=== PATIENT | female | born 1955 | race Caucasian/White ===

== ENCOUNTER → 2017-01-30 | Outpatient (CLI) | payer BC ==
--- NOTE | 2017-02-09 09:07 | MM ---
Reason for exam: screening (asymptomatic). Last mammogram was performed 1 year and 9 months ago. History: Patient is postmenopausal. Family history of breast cancer in mother at age 53. Physical Findings: A clinical breast exam by your physician is recommended on an annual basis and results should be correlated with mammographic findings. MG 3D Screening Mammo W/Cad Bilateral CC and MLO view(s) were taken. Prior study comparison: April 19, 2015, mammogram, performed at [facility]. March 22, 2014, mammogram, performed at [facility]. The breast tissue is heterogeneously dense. This may lower the sensitivity of mammography. No significant changes when compared with prior studies. ASSESSMENT: Negative, BI-RAD 1 RECOMMENDATION: Routine screening mammogram of both breasts in 1 year.
== END | disposition home or self-care (01) ==
LOC: RADMAMWWP 08:00
PROVIDERS: ATTEND Family Medicine
DX: Z12.31 Encounter for screening mammogram for malignant neoplasm of breast (principal)
CPT/HCPCS: 77063; G0202

== ENCOUNTER → 2017-02-03 | Outpatient (CLI) | payer BC ==
--- NOTE | 2017-02-04 17:14 | WWHP ---
DATE OF SERVICE: 02/03/17 CHIEF COMPLAINT: The patient is here for her routine gynecological exam and mammogram. HISTORY OF PRESENT ILLNESS: This is a 61-year-old G3, P3, with an LMP of approximately 1994. She states her last pelvic exam was about five years ago. Her mammogram was done on 01/30/17. Results are pending. She is without gynecological complaints and denies any postmenopausal bleeding. She has experienced some occasional urinary leakage. She states she occasionally will feel the urge to urinate and if she cannot get to the bathroom right away, she will leak. PAST MEDICAL HISTORY: Cardiac arrhythmia. 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 Elevated cholesterol. Chronic hypertension. Hypothyroidism. Restless leg syndrome. Gastroesophageal reflux disease. Seasonal allergies. Medications: 1. Requip generic 1 mg b.i.d. 2. Levothyroxine 100 mcg daily. 3. Prevacid 20 mg daily. 4. Hydrochlorothiazide 25 mg daily. 5. Lisinopril 5 mg daily. 6. Atorvastatin 80 mg daily. 7. Metoprolol tartrate 50 mg one in the morning and half tablet in the evening. 8. Plavix generic 75 mg daily. 9. Aspirin 325 mg daily. 10. Multivitamin one daily. 11. Claritin 24 hours 10 mg one daily prn. 12. Tylenol two tablets prn. ALLERGIES: No known drug allergies. 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 Stents placed in her arteries in her leg. PAST OB HISTORY: Three vaginal deliveries. 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 She has no history of STDs SOCIAL HISTORY: She quit smoking in 2013 but does use E-cigarettes. She has about six alcoholic drinks per year and denies drug use. She is a since 2009 and is not seeing anybody and is not sexually active at this time. 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 She has eight grandchildren. FAMILY HISTORY: Mother had breast cancer. Father had an SD. An aunt had diabetes. REVIEW OF SYSTEMS: Weight has been stable. She denies respiratory, cardiac or GI problems. : She has had occasional urge incontinence as in the HPI. PHYSICAL EXAM: Blood pressure 138/66. Height 5 feet 8 inches, weight 236 pounds. Temperature 96.7. Pulse 92. This is a well developed, white female who is alert and oriented times three in no acute distress. HEENT: is within normal limits. Neck is supple without mass or thyromegaly. Chest and lungs clear to auscultation. Heart is regular rate and rhythm. Breasts: Without mass or discharge. Axillary exam is negative for adenopathy. Back negative for CVA tenderness. Abdomen is soft and nontender without palpable masses. Pelvic exam, external genitalia reveals mild atrophy without lesions. There is no atrophy without lesions. There is no evidence of prolapse. There is no evidence of cystocele. With cough and Valsalva there is still no significant cystocele and no urinary leakage was demonstrated. There is minimal urethral mobility with cough and Valsalva. The uterus is mid position, nongravid size and nontender. There are no palpable adnexal masses or tenderness. Rectal exam negative for mass or tenderness. Negative for occult blood. Extremities nontender. IMPRESSION: 1. A 61 year old menopausal female with normal gynecological exam. 2. Occasional urge incontinence without any significant physical findings at this time. PLAN: 1. Pap smear was performed. 2. Self breast examination was discussed with the patient. 3. Mammogram was done on 01/30/17 and the results are pending. 4. Osteoporosis prevention was discussed. 5. I have recommended screening colonoscopy since she has never had this done. She will do this through her primary healthcare management. 6. I have recommended bone density screening. She would like to do this next year. 7. She will return in one year. ZINA
== END ==
LOC: WWCWWP 15:23
PROVIDERS: ATTEND Obstetrics & Gynecology
DX: Z01.419 Encounter for gynecological examination (general) (routine) without abnormal findings (principal)

== ENCOUNTER → 2018-04-16 | Outpatient (CLI) | payer BC ==
[2018-04-16 13:20] LABS: ALT 26 U/L (9-52); AST 20 U/L (14-36); Albumin 3.7 g/dL (3.5-5.0); Alkaline Phosphatase 75 U/L (38-126); Anion Gap 3 mmol/L; Blood Urea Nitrogen 17 mg/dL (7-17); Calcium 9.3 mg/dL (8.4-10.2); Carbon Dioxide 31 mmol/L (22-30); Chloride 108 mmol/L (98-107); Cholesterol 129 mg/dL (<200); Glucose 85 mg/dL (74-99); HDL Cholesterol 44 mg/dL (40-60); LDL Cholesterol,Calculated 72 mg/dL (0-99); Potassium 4.9 mmol/L (3.5-5.1); Sodium 142 mmol/L (137-145); Total Bilirubin 0.5 mg/dL (0.2-1.3); Total Protein 6.2 g/dL (6.3-8.2); Triglycerides 66 mg/dL (<150)
== END | disposition home or self-care (01) ==
LOC: LABWHC1 11:29
PROVIDERS: ATTEND Internal Medicine Cardiovascular Disease
DX: I25.10 Atherosclerotic heart disease of native coronary artery without angina pectoris (principal); E78.5 Hyperlipidemia, unspecified
CPT/HCPCS: 36415; 80053; 80061

== ENCOUNTER → 2018-07-06 | Outpatient (CLI) | payer BC ==
[2018-07-06 14:55] LABS: HCT 44.7 % (34.0-46.0); HGB 14.6 gm/dL (11.4-16.0); MCHC 32.7 g/dL (31.0-37.0); MCV 94.7 fL (80.0-100.0); Mean Platelet Volume 6.4; Platelet Count 329 k/uL (150-450); RBC 4.72 m/uL (3.80-5.40); RDW 13.6 % (11.5-15.5); WBC 7.2 k/uL (3.8-10.6)
[2018-07-06 15:17] LABS: Potassium 3.6 mmol/L (3.5-5.1)
== END | disposition home or self-care (01) ==
LOC: LABPAT 14:18
PROVIDERS: ATTEND Internal Medicine Interventional Cardiology
DX: Z01.812 Encounter for preprocedural laboratory examination (principal); I10 Essential (primary) hypertension; E78.1 Pure hyperglyceridemia; I70.213 Atherosclerosis of native arteries of extremities with intermittent claudication, bilateral legs
CPT/HCPCS: 36415; 80051; 82565; 84520; 85027

== ENCOUNTER → 2018-07-23 | Day surgery (SDC) | payer BC ==
[2018-07-21 11:51] VITALS: BMI 32.2
[~2018-07-23] MED LIST: ACETAMINOPHEN TAB 325 MG TAB ONE; ACETAMINOPHEN TAB 325 MG TAB PO PRN; ASPIRIN 325 MG TAB PO ONE; HYDROmorphone 2 MG/ML 1 ML SYRINGE IVP STA; IOPAMIDOL-250 100ML BTL INTRAARTER ONE; IOPAMIDOL-250 50ML BTL INTRAARTER ONE; MIDAZOLAM 2 MG/2 ML VIAL IVP ONE; SODIUM CHLORIDE 0.9% 1,000 ML IV SCH; SODIUM CHLORIDE 0.9% 1,000 ML in EMPTY BAG 1 BAG IV ONE; fentaNYL (PF) 50 MCG/ML 2 ML AMP IV ONE
[2018-07-23 08:06] VITALS: RESP 18; TEMP 98
[2018-07-23] MEDS: LIDOCAINE 1% INJ 10MG/ML (20 ML MDV) SQ ONE ×2 (10:36→10:38)
--- NOTE | 2018-07-23 11:03 | P.PCN ---
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 An abdominal aortogram 2. Bilateral lower extremities runoff PROCEDURE DESCRIPTION: After obtaining informed consent and explaining the procedure benefits, risks, and complications, the patient was brought to the cardiac lab instructor. The right groin was prepped and draped in sterile fashion. The right common femoral artery was cannulated using micropuncture technique, under ultrasound guidance. A micropuncture wire was advanced, and the micropuncture sheath was advanced over the wire, then the micropuncture sheath was exchanged over an 0.35 wire into a 5-Chadian sheath dilator assembly then the wire and dilator were removed and sheath was flushed. We did an abdominal aortogram and bilateral lower extremities runoff using 5- Chadian Omni Flush catheter using a power injection. The catheter was initially placed at the level of the renal arteries, and it was pulled into above the bifurcation of the aorta into right and left common iliac arteries. The procedure was completed and there was no complications. SELECTIVE PERIPHERAL ANGIOGRAM: The abdominal aorta: Appears to be angiographically normal. The common iliac arteries: Are angiographically normal The external iliac arteries: Are angiographically normal. The internal iliac arteries: Are patent The common femoral arteries: The right common femoral artery has intermediate disease only. The left common femoral artery appeared to be angiographically normal. Superficial femoral arteries: Are patent Popliteal arteries: Are patent. 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
--- NOTE | 2018-07-23 15:44 | IR ---
Fluoroscopy HISTORY: Pain in leg 1.1 minutes fluoroscopy time supplied to the referring clinician. 113 intraoperative C-arm images do cument the procedure. See dictated report from cardiology.
[2018-07-23 16:32] VITALS: BP 139/64; PULSE 54
== END ==
LOC: CATHCVL 07:41
PROVIDERS: ATTEND Internal Medicine Interventional Cardiology
DX: I70.213 Atherosclerosis of native arteries of extremities with intermittent claudication, bilateral legs (principal); Z95.820 Peripheral vascular angioplasty status with implants and grafts; I10 Essential (primary) hypertension; E78.5 Hyperlipidemia, unspecified; E78.00 Pure hypercholesterolemia, unspecified; E66.9 Obesity, unspecified; Z68.32 Body mass index [BMI] 32.0-32.9, adult; R00.2 Palpitations; I49.3 Ventricular premature depolarization; E03.9 Hypothyroidism, unspecified; Z79.02 Long term (current) use of antithrombotics/antiplatelets; Z79.82 Long term (current) use of aspirin; Z79.890 Hormone replacement therapy; Z79.899 Other long term (current) drug therapy; Z87.891 Personal history of nicotine dependence; Z82.49 Family history of ischemic heart disease and other diseases of the circulatory system
CPT/HCPCS: 36200; 75625; 75716; C1769 ×5; C1894; J2250; J1170; J2001; J3010; Q9966 ×2

== ENCOUNTER → 2018-11-19 | Outpatient (CLI) | payer BC ==
[2018-11-19 06:45] LABS: Blood Urea Nitrogen 24 mg/dL (7-17)
--- NOTE | 2018-11-19 08:24 | CT ---
EXAMINATION TYPE: CT angio neck DATE OF EXAM: 11/19/2018 COMPARISON: None HISTORY: Carotid Stenosis CT DLP: 238.6 mGycm CONTRAST: CTA cervical carotids is performed with IV Contrast, patient injected with 50 mL of Isovue 370. Contrast CTA of the cervical carotids was performed 3-D reconstruction imaging obtained at a separate workstation. Right carotid system: Mild plaque is seen of the right common carotid artery. There is moderate plaq ue also noted at the carotid bulb extending into the proximal left ICA. Estimated diameter reduction is approximately 80%. ECA is patent. Right vertebral artery appears unremarkable. Left carotid system: Mild plaque is seen of the left common carotid artery. There is mild plaque als o noted at the carotid bulb. Estimated diameter reduction is 50%. ECA is patent. Left vertebral ar jorge luis appears unremarkable. IMPRESSION: 1. Estimated diameter reduction Right ICA 80 2. Estimated diameter reduction Left ICA 50%
== END | disposition home or self-care (01) ==
LOC: RADCTMAIN 06:08
PROVIDERS: ATTEND Internal Medicine Interventional Cardiology
DX: I65.29 Occlusion and stenosis of unspecified carotid artery (principal)
CPT/HCPCS: 82565; 84520; 70498; 36415; Q9967

== ENCOUNTER 2018-12-28 06:02 | Inpatient (IN) | payer BC ==
[2018-12-22 10:56] VITALS: BMI 34.0
[~2018-12-28 06:02] MED LIST changes: -ACETAMINOPHEN TAB 325 MG TAB ONE; -ACETAMINOPHEN TAB 325 MG TAB PO PRN; -ASPIRIN 325 MG TAB PO ONE; +DEXAMETHASONE SOD PHOSPHATE 10 MG/ML 1 ML VIAL IV ONE; -HYDROmorphone 2 MG/ML 1 ML SYRINGE IVP STA; -IOPAMIDOL-250 100ML BTL INTRAARTER ONE; -IOPAMIDOL-250 50ML BTL INTRAARTER ONE; +MIDAZOLAM 2 MG/2 ML VIAL IV PRN; -MIDAZOLAM 2 MG/2 ML VIAL IVP ONE; +ONDANSETRON 4 MG/2 ML VIAL IVP ONE; +SCOPOLAMINE 1.5MG/72HR PATCH TRANSDERM ONE; -SODIUM CHLORIDE 0.9% 1,000 ML IV SCH; -SODIUM CHLORIDE 0.9% 1,000 ML in EMPTY BAG 1 BAG IV ONE; -fentaNYL (PF) 50 MCG/ML 2 ML AMP IV ONE
[2018-12-28] MEDS: LACTATED RINGERS 1,000 ML IV SCH (06:41)
[2018-12-28] MEDS ORDERED: LIDOCAINE 1% 20 ML VIAL (10MG/ML) FOR IV START INTRADERMA ONE (06:42)
[2018-12-28] MEDS: ceFAZolin IN SWFI 2 GM/20 ML SYRINGE IVP ONE ×2 (07:46→08:00)
[2018-12-28] MEDS ORDERED: LIDOCAINE 1% INJ 10MG/ML (20 ML MDV) SQ ONE (08:00)
[2018-12-28] MEDS ORDERED: LACTATED RINGERS 1,000 ML IV ONE ×4 (09:18→10:45)
[2018-12-28] MEDS ORDERED: GELATIN SPONGE,ABSORB (LARGE) 1 EACH SPONGE TOPICAL ONE (09:44)
[2018-12-28] MEDS ORDERED: THROMBIN (BOVINE) 5,000 UNIT VIAL TOPICAL ONE ×2 (09:44)
[2018-12-28] MEDS ORDERED: NITROGLYCERIN-D5W PMX 50 MG in DEXTROSE/WATER 1 250ML.BAG IV ONE ×3 (10:13)
[2018-12-28] MEDS ORDERED: MORPHINE SULFATE 2 MG/ML SYRINGE IVP PRN (10:19)
[2018-12-28] MEDS ORDERED: TRIMETHOBENZAMIDE 100 MG/ML 2 ML VIAL IM PRN (10:19)
[2018-12-28] MEDS ORDERED: BENZOCAINE/MENTHOL LOZENG 1 EACH LOZENGE MUCOUS MEM PRN (10:19)
[2018-12-28] MEDS ORDERED: ACETAMINOPHEN TAB 325 MG TAB PO PRN (10:19)
[2018-12-28] MEDS ORDERED: MAG HYDROX/AL HYDROX/SIMETH 30 ML CUP PO PRN (10:19)
[2018-12-28] MEDS: HYDROmorphone 0.5 MG/0.5 ML SYRINGE IVP PRN ×4 (10:26→11:13)
--- NOTE | 2018-12-28 10:48 | P.OP ---
Date of Procedure: 12/28/18 Preoperative Diagnosis: Asymptomatic right internal carotid artery stenosis Postoperative Diagnosis: Same Procedure(s) Performed: Right carotid endarterectomy with patch angioplasty Anesthesia: VARUN Surgeon: Kodi Crespo Part Time #1: Ramandeep Muir Estimated Blood Loss (ml): 50 Pathology: other (Carotid plaque) Condition: stable Disposition: PACU Indications for Procedure: 63-year-old female presents to the hospital secondary to right internal carotid artery severe stenosis greater than 80% seen on ultrasound and CT angiogram. Description of Procedure: After written informed consent was obtained the patient all risks benefits and competitions were described the patient is brought to the operative suite and laid in a supine position. The area of the neck was prepped and draped in usual sterile fashion after appropriate anesthetic was performed per the anesthesiologist. A timeout was performed in normal fashion antibiotics were administered prior to incision. An oblique incision was then created just anterior to the sternocleidomastoid musculature with a 10 blade scalpel and dissection was carried down to the carotid sheath. The carotid sheath was then entered after facial vein was located and suture ligated in normal fashion. The common carotid, internal carotid, external carotid and superior thyroid arteries were located and dissected free in a meticulous fashion circumferentially and controlled with vessel loops. Attention was then placed to locating the vagus nerve as well as hypoglossal nerve which were both spared. Once controlled patient was administered heparin and followed with ACTs for appropriate heparinization. Once ACT was above 200 the proximal and distal aspects of the dissection were then controlled with vascular clamps. Arteriotomy was then created with 11 blade scalpel and extended with Courtney Rosario scissors. Utilizing pressure tubing stump pressures were obtained and were 58 mmHg. No shunt was required and endarterectomy was then performed with a [place] and elevator. The plaque was then feathered at the distal aspect and the internal carotid artery and removed. The area was copiously irrigated with heparinized saline and all free debris was removed. A 7-0 Prolene suture was then placed to tack the distal aspect of the dissection at the internal carotid artery. A 0.8 x 8 cm bovine pericardial patch was then chosen and patch angioplasty was performed with 6-0 Prolene suture in a running fashion. Prior to last sutures being placed the inflow was released flushing any free debris out of the patch. This was reclamped and the internal carotid artery was released revealing good brisk flow and was once again reclamped. The external carotid and superior thyroid artery were then released followed by the common carotid artery to allow any free debris to be flushed into the external system. Final sutures were placed and secured. Internal carotid artery control was then released. Good pulsatile flow was noted through the patch and a Doppler was utilized demonstrating good brisk flow into the internal, external carotid arteries without any signs of obstruction. Hemostasis was then assured with Gelfoam and thrombin and Surgicel. A 10-[place] SHAILESH drain was then placed in normal fashion and secured with 3-0 nylon suture. The incision was then closed in a multilayer fashion after hemostasis was assured. The skin was then cleansed and dressings were placed. Patient tolerated the procedure well and was following commands and moving all extremities. Patient was then sent to PACU for recovery.
[2018-12-28] MEDS ORDERED: NITROGLYCERIN-D5W PMX 50 MG in DEXTROSE/WATER 1 250ML.BAG IV SCH (11:30)
[2018-12-28 12:12] LABS: Glucose,Whole Blood 132 mg/dL (75-99)
[2018-12-28 13:05] LABS: Basophils % (A) 1 %; Eosinophils # (A) 0.1 k/uL (0-0.7); Eosinophils % (A) 1 %; HCT 35.2 % (34.0-46.0); HGB 11.2 gm/dL (11.4-16.0); Lymphocytes # (A) 0.9 k/uL (1.0-4.8); Lymphocytes % (A) 11 %; MCH 30.2 pg (25.0-35.0); MCHC 31.9 g/dL (31.0-37.0); MCV 94.8 fL (80.0-100.0); Mean Platelet Volume 7.1; Monocytes # (A) 0.2 k/uL (0-1.0); Monocytes % (A) 2 %; Neutrophils # (A) 6.8 k/uL (1.3-7.7); Neutrophils % (A) 85 %; Platelet Count 262 k/uL (150-450); RBC 3.71 m/uL (3.80-5.40); RDW 14.9 % (11.5-15.5); WBC 8.1 k/uL (3.8-10.6)
[2018-12-28] MEDS: CLEVIDIPINE BUTYRATE 25 MG in EMPTY BAG 1 BAG IV SCH ×2 (13:17→22:29)
[2018-12-28 13:18] LABS: African American GFR (CKD) >90 (>60 ml/min/1.73 sqM); Anion Gap 3 mmol/L; Blood Urea Nitrogen 20 mg/dL (7-17); Calcium 7.1 mg/dL (8.4-10.2); Carbon Dioxide 24 mmol/L (22-30); Chloride 112 mmol/L (98-107); Glucose 112 mg/dL (74-99); Sodium 139 mmol/L (137-145)
[2018-12-28] MEDS ORDERED: NON-FORMULARY DRUG (Lansoprazole [Prevacid] 15 MG) PO PRN (17:11)
[2018-12-28 17:23] LABS: Magnesium 1.6 mg/dL (1.6-2.3); Phosphorus 3.5 mg/dL (2.5-4.5)
[2018-12-28] MEDS: HEPARIN SODIUM,PORCINE 5,000 UNIT/ML 1 ML VIAL SQ SCH ×2 (17:39→23:09)
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
[2018-12-28] MEDS ORDERED: Magnesium Replacement Protocol 1 EACH MISC MISCELLANE PRN (17:46)
[2018-12-28] MEDS: HYDROcodone/APAP 5-325MG 1 EACH TAB PO PRN (17:53)
[2018-12-28] MEDS: MAGNESIUM SULFATE-D5W PMX 1 GM in DEXTROSE/WATER 1 100ML.BAG IVPB SCH ×2 (17:55→20:07)
--- NOTE | 2018-12-28 18:58 | P.CNPUL ---
History of Present Illness Consult date: 12/28/18 Chief complaint: Right carotid endarterectomy History of present illness: 53-year-old female patient was covered Dr. vergara and additional history of hypertension and hyperlipidemia smoking and peripheral vascular disease with underwent a elective right carotid endarterectomy with patch angioplasty. The patient is postop day #0. The patient was brought into the intensive care unit for further monitoring. Upon arrival her blood pressure was quite elevated on nitroglycerin drip at 60 g and based on that this was discontinued and the p atient was placed on Suprax which is currently running at 2 mg an hour. For now, the blood pressure is 126/55 d the patient is well-controlled. Note that the patient takes a combination of metoprolol 25 mg at bedtime and 50 mg in the morning in addition to Zestril 5 mg in the morning hydrochlorothiazide 25 mg daily for blood pressure control. The patient is also on a combination of aspirin and Plavix. The patient is doing well. Surgical wound site is dry clean and intact. She does have a SHAILESH drain and output is minimal at this point in time. She is moving all 4 extremities without any limitation. No headaches. No seizure activity. Vision is within normal limits. Speech is within normal limits. Review of Systems Constitutional: Denies chills, Denies fever Eyes: denies blurred vision, denies bulging eye, denies decreased vision Ears: deny: decreased hearing, ear discharge, earache, tinnitus Ears, nose, mouth and throat: Denies headache, Denies sore throat Breasts: absent: as per HPI, change in shape, gynecomastia, masses, nipple discharge, pain, skin changes, swelling Cardiovascular: Reports claudication, Reports high blood pressure, Reports palpitations, Denies chest pain, Denies shortness of breath Respiratory: Denies cough Gastrointestinal: Reports as per HPI Genitourinary: Reports as per HPI Menstruation: Reports as per HPI Musculoskeletal: Reports as per HPI Musculoskeletal: absent: ankle pain, ankle stiffness, ankle swelling Integumentary: Reports as per HPI Neurological: Reports as per HPI Psychiatric: Reports as per HPI Endocrine: Reports as per HPI Hematologic/Lymphatic: Reports as per HPI Allergic/Immunologic: Reports as per HPI Past Medical History Past Medical History: GERD/Reflux, Hyperlipidemia, Hypertension, Supraventricular Tachycardia (SVT), Thyroid Disorder, Vascular Disorder Additional Past Medical History / Comment(s): Peripheral vascular disease with previous vascular intervention and stenting to her left lower extremity, history of PVCs, carotid artery stenosis, hypertension, hyperlipidemia, acid reflux, hypothyroidism , acid reflux previous history of SVT History of Any Multi-Drug Resistant Organisms: None Reported Past Surgical History: Tubal Ligation Additional Past Surgical History / Comment(s): 05/03/15 AORTOGRAM. stent in left leg , 2ND STENT PLACED LEFT LEG, RT LEG balloon angioplasty 2013, 05-31-15 PTBA LT SFA, RT FOOT HAD SMALL LUMP REMOVED(BENIGN), kaitlin carpal tunnel Past Anesthesia/Blood Transfusion Reactions: No Reported Reaction Smoking Status: Former smoker - Past Family History Father Family Medical History: Myocardial Infarction (PA) Additional Family Medical History / Comment(s): PA AGE 71 Mother Family Medical History: Cancer Additional Family Medical History / Comment(s): FROM BREAST CANCER AGE 55 Medications and Allergies Home Medications Medication Instructions Recorded Confirmed Type Aspirin 325 mg PO QAM 01/25/14 12/28/18 History Clopidogrel [Plavix] 75 mg PO QAM 01/25/14 12/28/18 History Hydrochlorothiazide [Hydrodiuril] 25 mg PO QAM 01/25/14 12/28/18 History Lansoprazole [Prevacid] 15 mg PO DAILY PRN 01/25/14 12/28/18 History Metoprolol Tartrate [Lopressor] 25 mg PO HS 01/25/14 12/28/18 History Metoprolol Tartrate [Lopressor] 50 mg PO QAM 01/25/14 12/28/18 History Multivitamins, Thera [Multivitamin 1 tab PO DAILY 01/25/14 12/28/18 History (formulary)] Lisinopril [Zestril] 5 mg PO QAM 05/29/15 12/28/18 History Atorvastatin Calcium [Lipitor] 80 mg PO DAILY 07/21/18 12/28/18 History Levothyroxine Sodium [Synthroid] 100 mcg PO DAILY 12/28/18 12/28/18 History Allergies Allergy/AdvReac Type Severity Reaction Status Date / Time No Known Allergies Allergy Verified 12/28/18 10:45 Physical Exam Vitals: Vital Signs Temp Pulse Pulse Pulse Resp BP BP 12/28/18 18:00 71 11 L 139/82 12/28/18 17:50 76 16 139/82 12/28/18 17:40 97 23 148/85 12/28/18 17:30 81 15 12/28/18 17:20 82 19 150/83 12/28/18 17:10 85 11 L 127/67 12/28/18 17:00 59 L 12 127/76 12/28/18 16:50 57 L 11 L 127/76 12/28/18 16:40 58 L 11 L 134/93 12/28/18 16:30 67 11 L 12/28/18 16:20 65 16 137/77 12/28/18 16:10 65 17 144/87 12/28/18 16:00 97.5 F L 65 55 L 17 132/76 12/28/18 15:50 55 L 22 132/76 12/28/18 15:40 61 19 106/85 12/28/18 15:30 52 L 11 L 115/72 12/28/18 15:20 61 11 L 115/72 12/28/18 15:10 58 L 14 132/72 12/28/18 15:00 80 16 113/63 12/28/18 14:50 59 L 20 113/63 12/28/18 14:40 58 L 12 114/71 12/28/18 14:30 76 13 109/61 12/28/18 14:20 55 L 20 109/61 12/28/18 14:10 63 20 123/86 12/28/18 14:00 74 16 120/72 12/28/18 13:50 82 14 120/72 12/28/18 13:40 65 11 L 130/79 12/28/18 13:30 105 H 20 126/83 12/28/18 13:20 62 18 12/28/18 13:10 77 16 143/88 12/28/18 13:00 61 19 142/73 12/28/18 12:50 54 L 10 L 142/73 12/28/18 12:40 57 L 16 134/71 12/28/18 12:30 51 L 17 130/77 12/28/18 12:21 97.5 F L 50 L 16 130/77 12/28/18 12:10 20 12/28/18 12:00 55 L 14 12/28/18 11:30 59 L 16 12/28/18 11:15 56 L 16 12/28/18 11:00 59 L 16 12/28/18 10:45 62 16 12/28/18 10:30 63 16 12/28/18 10:13 98 F 60 16 12/28/18 06:38 97.3 F L 67 18 125/65 BP BP BP Pulse Ox 12/28/18 18:00 96 12/28/18 17:50 96 12/28/18 17:40 97 12/28/18 17:30 98 12/28/18 17:20 98 12/28/18 17:10 97 12/28/18 17:00 99 12/28/18 16:50 99 12/28/18 16:40 98 12/28/18 16:30 98 12/28/18 16:20 98 12/28/18 16:10 98 12/28/18 16:00 97 12/28/18 15:50 99 12/28/18 15:40 97 12/28/18 15:30 98 12/28/18 15:20 98 12/28/18 15:10 97 12/28/18 15:00 98 12/28/18 14:50 97 12/28/18 14:40 97 12/28/18 14:30 95 12/28/18 14:20 95 12/28/18 14:10 94 L 12/28/18 14:00 96 12/28/18 13:50 95 12/28/18 13:40 96 12/28/18 13:30 95 12/28/18 13:20 97 12/28/18 13:10 98 12/28/18 13:00 98 12/28/18 12:50 96 12/28/18 12:40 98 12/28/18 12:30 97 12/28/18 12:21 96 12/28/18 12:10 12/28/18 12:00 12/28/18 11:30 126/59 137/53 97 12/28/18 11:15 149/78 152/77 97 12/28/18 11:00 151/63 155/65 96 12/28/18 10:45 159/71 163/70 95 12/28/18 10:30 161/70 159/77 98 12/28/18 10:13 140/60 149/62 100 12/28/18 06:38 121/63 94 L Intake and Output 12/28/18 12/28/18 12/28/18 06:59 14:59 22:59 Intake Total 400 1980.901 81.167 Output Total 800 835 Balance 400 1180.901 -753.833 Intake: IV 400 1975.3 80 Lactated Ringers 1,000 ml 60 80 @ 20 mls/hr IV .Q24H [facility] Rx#:[id number] Intake, IV Titration 5.601 1.167 Amount Clevidipine Butyrate 25 5.601 1.167 mg In Empty Bag 1 bag @ 1 MG/HR 2 mls/hr IV .Q24H [facility] Rx#:[id number] Output: Drainage 0 10 Right 0 10 Urine 725 825 Estimated Blood Loss 75 Other: Voiding Method Indwelling Catheter Indwelling Catheter ABP, PAP, CO, CI - Last 8 Hours Arterial Blood Pressure 148/63 Arterial Blood Pressure 144/57 Arterial Blood Pressure 164/71 Arterial Blood Pressure 166/71 Arterial Blood Pressure 175/80 Arterial Blood Pressure 138/58 Arterial Blood Pressure 154/62 Arterial Blood Pressure 158/68 Arterial Blood Pressure 117/58 Arterial Blood Pressure 142/62 Arterial Blood Pressure 155/62 Arterial Blood Pressure 155/64 Arterial Blood Pressure 149/61 Arterial Blood Pressure 143/68 Arterial Blood Pressure 132/53 Arterial Blood Pressure 137/60 Arterial Blood Pressure 135/54 Arterial Blood Pressure 159/70 Arterial Blood Pressure 134/59 Arterial Blood Pressure 139/58 Arterial Blood Pressure 138/56 Arterial Blood Pressure 124/50 Arterial Blood Pressure 132/53 Arterial Blood Pressure 142/61 Arterial Blood Pressure 138/63 Arterial Blood Pressure 141/62 Arterial Blood Pressure 159/73 Arterial Blood Pressure 166/67 Arterial Blood Pressure 153/64 Arterial Blood Pressure 149/63 Arterial Blood Pressure 151/64 Gen. appearance, comfortable no acute distress Head exam was generally normal. There was no scleral icterus or corneal arcus. Mucous membranes were moist. Neck was supple and without jugular venous distension, thyromegaly, or carotid bruits. Carotids were easily palpable bilaterally. There was no adenopathy The surgical wound site over the right neck surgical wound site is dry clean and intact the patient is a SHAILESH drain in place. Trachea in the midline. No stridor. Lungs were clear to auscultation and percussion, and with normal diaphragmatic excursion. No wheezes or rales were noted. Cardiac exam revealed the PMI to be normally situated and sized. The rhythm was regular and no extrasystoles were noted during several minutes of auscultation. The first and second heart sounds were normal and physiologic splitting of the second heart sound was noted. There were no murmurs, rubs, clicks, or gallops. Abdominal exam revealed normal bowel sounds. The abdomen was soft, non-tender, and without masses, organomegaly, or appreciable enlargement of the abdominal aorta. extremities revealed diminished pulses and there is no cyanosis or clubbing. Equal and symmetrical motor function lower extremities bilaterally. Neurologically the patient is awake and alert and is no focal neurological deficit. Examination of the skin revealed no evidence of significant rashes, suspicious appearing nevi or other concerning lesions. Results - Laboratory Findings CBC and BMP: 12/28/18 12:53 12/28/18 12:53 Abnormal lab findings: Abnormal Labs 12/28/18 12/28/18 12/28/18 12:11 12:53 12:53 RBC 3.71 L Hgb 11.2 L Lymphocytes # 0.9 L Chloride 112 H BUN 20 H Creatinine 0.46 L Glucose 112 H POC Glucose (mg/dL) 132 H Calcium 7.1 L Assessment and Plan Plan: 1 right carotid endarterectomy for cardiac artery stenosis. The patient underwent a endarterectomy and patch angioplasty. The patient is postop day #0. 2 hypertension currently on side effects of for blood pressure control 3 peripheral vascular disease with history of claudication vascular intervention and stenting to the left lower extremity 4 hypertension 5 hyperlipidemia 6 history of smoking 7 obesity with a BMI of 34.0 8 history of acid reflux Plan Monitor the surgical wound site. Resume outpatient medication. Gradually wean down the Upper extremity and a systolic blood pressure of less than 160. IV fluids in the form of lactated Ringer at the rate of 20 mL an hour. No cold 5 for pain control. Replace magnesium. Monitor cardiac rhythm and currently the patient is in sinus rhythm with occasional PVCs. The patient will be monitored in ICU for the next 24 hours and probably get discharged home in a.m. if things are still stable. Vascular surgery on the case. We'll continue to follow.
[2018-12-28] MEDS ORDERED: METOPROLOL TARTRATE 25 MG TAB PO SCH (21:00)
[2018-12-29] MEDS: HYDROcodone/APAP 5-325MG 1 EACH TAB PO PRN ×2 (00:31→06:07)
[2018-12-29 04:46] LABS: Basophils % (A) 0 %; Eosinophils # (A) 0.2 k/uL (0-0.7); Eosinophils % (A) 2 %; HCT 37.1 % (34.0-46.0); HGB 12.1 gm/dL (11.4-16.0); Lymphocytes # (A) 2.2 k/uL (1.0-4.8); Lymphocytes % (A) 17 %; MCH 30.4 pg (25.0-35.0); MCHC 32.7 g/dL (31.0-37.0); MCV 93.1 fL (80.0-100.0); Mean Platelet Volume 7.2; Monocytes # (A) 0.6 k/uL (0-1.0); Monocytes % (A) 5 %; Neutrophils # (A) 9.4 k/uL (1.3-7.7); Neutrophils % (A) 75 %; Platelet Count 314 k/uL (150-450); RBC 3.99 m/uL (3.80-5.40); RDW 13.9 % (11.5-15.5); WBC 12.6 k/uL (3.8-10.6)
[2018-12-29 04:57] LABS: African American GFR (CKD) >90 (>60 ml/min/1.73 sqM); Anion Gap 3 mmol/L; Blood Urea Nitrogen 15 mg/dL (7-17); Calcium 8.3 mg/dL (8.4-10.2); Carbon Dioxide 29 mmol/L (22-30); Chloride 105 mmol/L (98-107); Glucose 119 mg/dL (74-99); Magnesium 2.1 mg/dL (1.6-2.3); Sodium 137 mmol/L (137-145)
[2018-12-29 05:07] LABS: Potassium 5.1 mmol/L (3.5-5.1)
[2018-12-29] MEDS: LACTATED RINGERS 1,000 ML IV SCH (06:07)
[2018-12-29] MEDS ORDERED: LEVOTHYROXINE 100 MCG TAB PO SCH (06:30)
[2018-12-29] MEDS ORDERED: PANTOPRAZOLE 40 MG TABLET PO SCH (07:30)
--- NOTE | 2018-12-29 07:36 | CONS ---
CONSULTATION Mrs. Buenrostro is a 63-year-old female with a known history of peripheral vessel disease, history of hypertension who presented electively and underwent right carotid endarterectomy. She is in the ICU postoperatively. She had episode of hypertension. She is feeling well this morning. She denies any chest pain, her breathing has been stable. She denies any dizziness. She has rare palpitation in the past. She has no history of obstructive coronary artery disease or heart failure. She has no PND or orthopnea. She has history of peripheral vascular disease, status post percutaneous revascularization by Dr. Holliday. Her coronary risk factors are positive for hypertension, hyperlipidemia. She is non diabetic. She has stopped smoking many years ago her. MEDICATION: At home include aspirin, Lipitor 80 mg daily, Plavix 75 mg daily, HydroDIURIL 25 mg daily, lisinopril 5 mg daily, metoprolol tartrate 50 in the morning, 25 in the afternoon, and Synthroid. REVIEW OF SYSTEMS: RESPIRATORY SYSTEM: She has no recent history of lung infection. She has no wheezing, no cough. GI SYSTEM: No GI bleeding. No peptic ulcer disease. SYSTEM: No dysuria or hematuria. NERVOUS SYSTEM: No stroke or seizure. PHYSICAL EXAMINATION: She is a 63-year-old female, alert, oriented, in no apparent distress. Blood pressure 128/60 with a heart rate in the 70s. Initially postoperatively, her blood pressure was up in the 160s and 170s. HEAD: Normocephalic. EYES: Sclerae nonicteric. NECK: With dressing noted on the right neck, dry. LUNGS: Clear to auscultation. HEART: Regular rate and rhythm, S1, S2. No S3. No rub or gallop. ABDOMEN: Soft, nontender. Positive bowel sounds, no organomegaly. EXTREMITIES: No edema, intact pulses. LAB DATA: Revealed BUN and creatinine 15 and 0.52, potassium 5.1, hemoglobin of 12.1. IMPRESSION: 1. Status post right carotid endarterectomy, stable. 2. Hypertension, under better control. Patient continues to be on intravenous calcium channel catherine, that was off and re-initiated a few hours ago because of the blood pressure 170s. 3. History of peripheral vessel disease, stable with lower extremities pain at this time that appears to be musculoskeletal and neurological. 4. History of hyperlipidemia. RECOMMENDATION: From the cardiac standpoint, will wean the intravenous regimen. Will increase the dose of her lisinopril. Increase her level of activity are depending on her progress, further recommendation will be made. Thank you for this consult. Will follow with you. JENN / RIGOBERTO: [id number] /
--- NOTE | 2018-12-29 07:57 | P.PN ---
Subjective Progress Note Date: 12/29/18 Principal diagnosis: Right ICA stenosis 63 year old female s/p right CEA with patch angioplasty. She did well overnight. Has no complaints of lateralizing symptoms such as vision changes, weakness or speech issues. She has gotten up and walked to the bathroom without any dizziness or instability. She denies any fevers, chills, chest pain or shortness of breath. She states she would like to go home and feels good. Objective - Vital Signs Vital signs: Vital Signs Temp 97.9 F 12/29/18 00:00 Pulse 74 12/29/18 07:00 Resp 19 12/29/18 07:00 BP 108/66 12/28/18 19:00 Pulse Ox 94 L 12/29/18 07:00 Intake & Output 12/28/18 12/29/18 12/29/18 18:59 06:59 18:59 Intake Total 2062.068 361.533 20 Output Total 1635 1810 Balance 427.068 -1448.467 20 Weight 105 kg Intake: IV 2055.3 340 20 Lactated Ringers 1,000 ml 140 240 20 @ 20 mls/hr IV .Q24H [facility] Rx#:[id number] Magnesium Sulfate-D5w Pmx 100 1 gm In Dextrose/Water 1 100ml.bag @ 100 mls/hr IVPB Q1H [facility] Rx#: [id number] Intake, IV Titration 6.768 21.533 Amount Clevidipine Butyrate 25 6.768 21.533 mg In Empty Bag 1 bag @ 1 MG/HR 2 mls/hr IV .Q24H [facility] Rx#:[id number] Output: Drainage 10 15 Right 10 15 Urine 1550 1795 Estimated Blood Loss 75 Other: Voiding Method Indwelling Catheter Indwelling Catheter ABP, PAP, CO, CI - Last Documented Arterial Blood Pressure 128/62 - Exam Right neck incision is clean, dry and intact without any signs of hematoma or in fection. SHAILESH drain with scant serosanguineous fluid. No focal deficits. Good muscle strength bilaterally. Tongue is midline. - Labs CBC & Chem 7: 12/29/18 04:30 12/29/18 04:30 Labs: Abnormal Lab Results - Last 24 Hours (Table) 12/28/18 12/28/18 12/28/18 Range/Units 12:11 12:53 12:53 WBC (3.8-10.6) k/uL RBC 3.71 L (3.80-5.40) m/uL Hgb 11.2 L (11.4-16.0) gm/dL Neutrophils # (1.3-7.7) k/uL Lymphocytes # 0.9 L (1.0-4.8) k/uL Chloride 112 H (98-107) mmol/L BUN 20 H (7-17) mg/dL Creatinine 0.46 L (0.52-1.04) mg/dL Glucose 112 H (74-99) mg/dL POC Glucose (mg/dL) 132 H (75-99) mg/dL Calcium 7.1 L (8.4-10.2) mg/dL 12/29/18 12/29/18 Range/Units 04:30 04:30 WBC 12.6 H (3.8-10.6) k/uL RBC (3.80-5.40) m/uL Hgb (11.4-16.0) gm/dL Neutrophils # 9.4 H (1.3-7.7) k/uL Lymphocytes # (1.0-4.8) k/uL Chloride (98-107) mmol/L BUN (7-17) mg/dL Creatinine (0.52-1.04) mg/dL Glucose 119 H (74-99) mg/dL POC Glucose (mg/dL) (75-99) mg/dL Calcium 8.3 L (8.4-10.2) mg/dL Assessment and Plan (1) Stenosis of right internal carotid artery Current Visit: Yes Status: Acute Priority: High Code(s): I65.21 - OCCLUSION AND STENOSIS OF RIGHT CAROTID ARTERY SNOMED Code(s): 387675647 Plan: Removed SHAILESH drain at the bedside without issue. Continue to wean medication for blood pressure and if able to wean today then ok to d/c home later. Follow up in the office in 2 weeks. Ok to shower over the neck incision and steri strips.
[2018-12-29] MEDS: HEPARIN SODIUM,PORCINE 5,000 UNIT/ML 1 ML VIAL SQ SCH (08:37)
[2018-12-29] MEDS ORDERED: HYDROCHLOROTHIAZIDE 25 MG TAB PO SCH (09:00)
[2018-12-29] MEDS ORDERED: METOPROLOL TARTRATE 50 MG TAB PO SCH (09:00)
[2018-12-29] MEDS ORDERED: LISINOPRIL 5 MG TAB PO SCH ×2 (09:00)
[2018-12-29] MEDS ORDERED: ATORVASTATIN 80 MG TAB PO SCH (09:00)
[2018-12-29 14:27] VITALS: BP 132/80; PULSE 88; RESP 20; TEMP 98.2
--- NOTE | 2018-12-29 14:37 | P.PN ---
Subjective Progress Note Date: 12/29/18 53-year-old female patient was covered DrTerrance vergara and additional history of hypertension and hyperlipidemia smoking and peripheral vascular disease with underwent a elective right carotid endarterectomy with patch angioplasty. The patient is postop day #0. The patient was brought into the intensive care unit for further monitoring. Upon arrival her blood pressure was quite elevated on nitroglycerin drip at 60 g and based on that this was discontinued and the patient was placed on Suprax which is currently running at 2 mg an hour. For now, the blood pressure is 126/55 d the patient is well-controlled. Note that the patient takes a combination of metoprolol 25 mg at bedtime and 50 mg in the morning in addition to Zestril 5 mg in the morning hydrochlorothiazide 25 mg daily for blood pressure control. The patient is also on a combination of aspirin and Plavix. The patient is doing well. Surgical wound site is dry clean and intact. She does have a SHAILESH drain and output is minimal at this point in time. She is moving all 4 extremities without any limitation. No headaches. No seizure activity. Vision is within normal limits. Speech is within normal limits. On today's evaluation of 12/29/2018, the patient is doing extremely well. She is off any IV drips for blood pressure control and the patient is back on her oral antihypertensive medication. The patient is doing extremely well. No focal neurological deficit. Surgical wound site is dry clean and intact. No headache. No neck stiffness. No motor weakness in the upper and lower extremities. No change in her speech. BP is under good control pH is tolerating diet. Objective - Vital Signs Vital signs: Vital Signs Temp 98.2 F 12/29/18 14:00 Pulse 88 12/29/18 14:00 Resp 20 12/29/18 14:00 BP 132/80 12/29/18 14:00 Pulse Ox 96 12/29/18 14:00 Intake & Output 12/28/18 12/29/18 12/29/18 18:59 06:59 18:59 Intake Total 2062.068 361.533 606.6 Output Total 1635 1810 650 Balance 427.068 -1448.467 -43.4 Weight 105 kg Intake: IV 2055.3 340 80 Lactated Ringers 1,000 ml 140 240 80 @ 20 mls/hr IV .Q24H [facility] Rx#:[id number] Magnesium Sulfate-D5w Pmx 100 1 gm In Dextrose/Water 1 100ml.bag @ 100 mls/hr IVPB Q1H [facility] Rx#: [id number] Intake, IV Titration 6.768 21.533 26.6 Amount Clevidipine Butyrate 25 6.768 21.533 26.6 mg In Empty Bag 1 bag @ 1 MG/HR 2 mls/hr IV .Q24H [facility] Rx#:[id number] Oral 500 Output: Drainage 10 15 Right 10 15 Urine 1550 1795 650 Estimated Blood Loss 75 Other: Voiding Method Indwelling Catheter Indwelling Catheter Bedside Commode # Voids 0 ABP, PAP, CO, CI - Last Documented Arterial Blood Pressure 142/66 - Exam Gen. appearance, comfortable no acute distress Head exam was generally normal. There was no scleral icterus or corneal arcus. Mucous membranes were moist. Neck was supple and without jugular venous distension, thyromegaly, or carotid bruits. Carotids were easily palpable bilaterally. There was no adenopathy The surgical wound site over the right neck surgical wound site is dry clean and intact the patient is a SHAILESH drain in place. Trachea in the midline. No stridor. Lungs were clear to auscultation and percussion, and with normal diaphragmatic excursion. No wheezes or rales were noted. Cardiac exam revealed the PMI to be normally situated and sized. The rhythm was regular and no extrasystoles were noted during several minutes of auscultation. The first and second heart sounds were normal and physiologic splitting of the second heart sound was noted. There were no murmurs, rubs, clicks, or gallops. Abdominal exam revealed normal bowel sounds. The abdomen was soft, non-tender, and without masses, organomegaly, or appreciable enlargement of the abdominal aorta. extremities revealed diminished pulses and there is no cyanosis or clubbing. Equal and symmetrical motor function lower extremities bilaterally. Neurologically the patient is awake and alert and is no focal neurological deficit. Examination of the skin revealed no evidence of significant rashes, suspicious appearing nevi or other concerning lesions. - Labs CBC & Chem 7: 12/29/18 04:30 12/29/18 04:30 Labs: Abnormal Lab Results - Last 24 Hours (Table) 12/29/18 12/29/18 Range/Units 04:30 04:30 WBC 12.6 H (3.8-10.6) k/uL Neutrophils # 9.4 H (1.3-7.7) k/uL Glucose 119 H (74-99) mg/dL Calcium 8.3 L (8.4-10.2) mg/dL Assessment and Plan Plan: 1 right carotid endarterectomy for cardiac artery stenosis. The patient underwent a endarterectomy and patch angioplasty. The patient is postop day #1. 2 hypertension, BP is under good control 3 peripheral vascular disease with history of claudication vascular intervention and stenting to the left lower extremity 4 hypertension 5 hyperlipidemia 6 history of smoking 7 obesity with a BMI of 34.0 8 history of acid reflux Plan Monitor the surgical wound site. Patient is doing well. Discontinue the Artline catheter. Resume oral antihypertensive medication. Resume aspirin and Plavix. Discharge in the afternoon.
== END 2018-12-29 14:32 | disposition home or self-care (01) | DRG 39 ==
LOC: 2ORMAIN 06:02 → 2SICU 10:28
PROVIDERS: ADMIT Surgery; ATTEND Surgery
PROC: 03UK0JZ Supplement Right Internal Carotid Artery with Synthetic Substitute, Open Approach (ICD-10-PCS; principal; 2018-12-28 07:30)
PROC: 03CK0ZZ Extirpation of Matter from Right Internal Carotid Artery, Open Approach (ICD-10-PCS; principal; 2018-12-28 07:30)
DX: I65.21 Occlusion and stenosis of right carotid artery (principal); E03.9 Hypothyroidism, unspecified; E66.9 Obesity, unspecified; Z68.34 Body mass index [BMI] 34.0-34.9, adult; E78.5 Hyperlipidemia, unspecified; I10 Essential (primary) hypertension; I70.219 Atherosclerosis of native arteries of extremities with intermittent claudication, unspecified extremity; K21.9 Gastro-esophageal reflux disease without esophagitis; Z79.02 Long term (current) use of antithrombotics/antiplatelets; Z79.82 Long term (current) use of aspirin; Z79.890 Hormone replacement therapy; Z79.899 Other long term (current) drug therapy; Z80.3 Family history of malignant neoplasm of breast; Z82.49 Family history of ischemic heart disease and other diseases of the circulatory system; Z87.891 Personal history of nicotine dependence
CPT/HCPCS: 80048; 83735; 84100; 85025; 86850; 86900; 86901; 88304; 88311

== ENCOUNTER → 2019-03-10 | Outpatient (CLI) | payer BC ==
--- NOTE | 2019-03-10 14:48 | MR ---
EXAMINATION TYPE: MR lumbar spine wo con DATE OF EXAM: 03/10/2019 COMPARISON: NONE HISTORY: Radiculopathy, lumbar / Low back pain. Left thigh and calf pain for a few years. TECHNIQUE: Multiplanar, multisequence imaging of the lumbar spine is performed without IV contrast. FINDINGS: Sagittal images of the lumbar spine show vertebral body heights and alignment to appear sat isfactory. Multilevel disc desiccation is present there is [id number] multilevel disc space willy rowing. Is mild to moderate multilevel anterior spurring The conus medullaris is normal in position and signal ending mid L1 level. Several small Schmorl nodes are seen in the upper sacrum for referenc e superior S2 level 10 mm Schmorl node sagittal image 5. The bone marrow signal intensity is within n ormal limits. Axial images at the and T12-L1 and L1-L2 levels are within normal limits. Axial images at the L2-L3 level show mild to moderate facet degenerative changes bilaterally with mil d broad-based posterior disc protrusion mildly effacing the anterior thecal sac. Bilateral neural for eddie are patent. Axial images at the L3-L4 level show moderate to advanced facet degenerative changes and ligamentum f lavum hypertrophy, right greater than left. There is mild broad disc bulge minimally effacing anterio r thecal sac. There is mild right-sided anterior inferior neural foraminal narrowing. Axial images at the L4-L5 level show mild to moderate right greater than left facet degenerative manzano ges. There is broad disc bulge with right paracentral disc protrusion component effacing anterior the julia sac. Bilateral neural foramina are patent. Axial images at the L5-S1 level show moderate to advanced right-sided facet degenerative changes. Spi nal canal is preserved. Bilateral neural foramina are patent. Paraspinal muscle bulk is preserved. IMPRESSION: Multilevel degenerative changes in the mid to lower lumbar spine as detailed above.
== END ==
LOC: RADMRIMAIN 11:03
PROVIDERS: ATTEND Physical Medicine & Rehabilitation
DX: M47.26 Other spondylosis with radiculopathy, lumbar region (principal)
CPT/HCPCS: 72148